=== PATIENT | male | born 1955 | race Caucasian/White ===

== ENCOUNTER 2024-06-13 07:28 | Day surgery (SDC) | payer OTHER ==
[2024-06-13] MEDS ORDERED: MIDAZOLAM HCL 2 MG/2 ML SINGLE DOSE VIAL ONE ×3 (12:48→16:05)
[2024-06-13 13:23] VITALS: RESP 20
[2024-06-13 15:18] VITALS: BP 123/83; PULSE 70; TEMP 96.9
== END 2024-06-13 14:09 | disposition home or self-care (01) ==
LOC: JASU-SURG 07:28
PROVIDERS: ATTEND Urology
PROC: 0TF3XZZ Fragmentation in Right Kidney Pelvis, External Approach (ICD-10-PCS; principal; 2024-06-13 12:30)
DX: N20.0 Calculus of kidney (principal)